=== PATIENT | male | born 1985 | race Caucasian/White ===

== ENCOUNTER 2018-09-03 19:04 | Emergency (ER) | payer BC ==
[~2018-09-03] VITALS: Ht 177.8 cm; Wt 61.2 kg
[2018-09-03 20:03] VITALS: BP 128/80
== END 2018-09-03 20:05 | disposition home or self-care (01) ==
LOC: M.ERS 19:04
DX: M71.521 Other bursitis, not elsewhere classified, right elbow (principal); F17.210 Nicotine dependence, cigarettes, uncomplicated